=== PATIENT | female | born 1995 | race Caucasian/White ===

== ENCOUNTER 2019-09-19 16:18 | Emergency (ER) | payer OTHER ==
[~2019-09-19] VITALS: Ht 160 cm; Wt 68.0 kg
[2019-09-19 16:35] VITALS: BP 123/62
--- NOTE | 2019-09-19 16:37 | NUR ---
urine cup handed to pt for sample
--- NOTE | 2019-09-19 16:52 | NUR ---
Patient ambulated to bed 12. RN evaluating patient at bedside.
--- NOTE | 2019-09-19 17:00 | NUR ---
24 Y/O F C/O LOWER BACK PAIN THAT RADIATES DOWN BOTH LEGS /. PT STATES SHE WAS GETTING HER DAUGHTER OUT OF THE CAR AND FELT HER BACK STRAIN WHEN REACHING/LIFTING FOR HER. PT DID NOT TAKE ANYTHING FOR PAIN AT HOME. PT ABLE TO LIFT BOTH LEGS WITHOUT DIFFICULTY. NO NUMBNESS OR TINGLING IN BOTH LEGS. PAIN IS DESCRIBED A CRAMPING SENSATION IN THE LOWER BACK. PT POSITIONED FOR COMFORT, AT [facility]. VALENTIN
[2019-09-19] MEDS ORDERED: KETOROLAC 30 MG/ML VIAL IM ONE (17:15)
[2019-09-19 17:33] VITALS: BP 123/62
--- NOTE | 2019-09-19 17:33 | NUR ---
Patient discharged with v/s stable. Written and verbal after care instructions given and explained. Patient alert, oriented and verbalized understanding of instructions. Ambulatory with steady gait. All questions addressed prior to discharge. ID band removed. Patient advised to follow up with PMD. Rx of ACTAMINOPHEN given. Patient educated on indication of medication including possible reaction and side effects. Opportunity to ask questions provided and answered.
== END 2019-09-19 17:33 | disposition home or self-care (01) ==
LOC: MED 16:18
DX: S39.012A Strain of muscle, fascia and tendon of lower back, initial encounter (principal); X50.0XXA Overexertion from strenuous movement or load, initial encounter; Y93.89 Activity, other specified; Y92.89 Other specified places as the place of occurrence of the external cause; Y99.8 Other external cause status
CPT/HCPCS: 81025; 96372; 99283; J1885

== ENCOUNTER 2022-08-02 13:57 | Emergency (ER) | payer OTHER ==
[~2022-08-02] VITALS: Ht 157.5 cm; Wt 68.5 kg
[2022-08-02 14:02] VITALS: BP 132/84
[2022-08-02] MEDS ORDERED: ALBUTEROL SULFATE/IPRATROPIU 3 ML SOL IH ONE (14:40)
[2022-08-02] MEDS ORDERED: DEXAMETHASONE 4 MG TAB PO ONE (14:40)
--- NOTE | 2022-08-02 15:15 | NUR ---
27/F WALKED IN C/O COUGH ONSET 2 DAYS AGO. PT REPORTS TESTING NEGATIVE FOR COVID AT HOME. AFEBRILE AT TRIAGE. DENIES SOB OR CHEST PAIN. AAO4, AMBULATORY. NKA PMH: DENIES
[2022-08-02] MEDS ORDERED: ALBU0.0912 IH (16:30)
[2022-08-02] MEDS ORDERED: DOXY-690 PO (16:30)
[2022-08-02 16:38] VITALS: BP 127/78
--- NOTE | 2022-08-02 16:38 | NUR ---
Patient discharged with v/s stable. Written and verbal after care instructions given. Patient alert, oriented and verbalized understanding of instructions. Ambulatory with steady gait. All questions addressed prior to discharge. ID band removed. Patient advised to follow up with PMD. Rx of PROVENTIL AND VIBRAMYCIN given. Opportunity to ask questions provided and answered.
== END 2022-08-02 16:38 | disposition home or self-care (01) ==
LOC: MED 13:57
DX: J98.01 Acute bronchospasm (principal); Z20.822 Contact with and (suspected) exposure to COVID-19; J18.9 Pneumonia, unspecified organism; F17.200 Nicotine dependence, unspecified, uncomplicated; F12.90 Cannabis use, unspecified, uncomplicated; F41.9 Anxiety disorder, unspecified; Z79.899 Other long term (current) drug therapy
CPT/HCPCS: 71045; 81002; 81025; 94640; 99284

== ENCOUNTER 2022-10-24 08:24 | Emergency (ER) | payer OTHER ==
[~2022-10-24] VITALS: Ht 157.5 cm; Wt 70.8 kg
[~2022-10-24 08:24] MED LIST: ALBU0.0912 IH; DOXY-690 PO
[2022-10-24 08:36] VITALS: BP 130/74
[2022-10-24] MEDS ORDERED: ACETAMINOPHEN 325 MG TAB PO ONE (09:00)
--- NOTE | 2022-10-24 09:20 | NUR ---
Pt tranferred to bed 09
--- NOTE | 2022-10-24 09:24 | NUR ---
Radiology at bedside to complete xray
[2022-10-24] MEDS ORDERED: ACET-8905 PO (10:09)
--- NOTE | 2022-10-24 10:19 | NUR ---
Patient discharged with v/s stable. Written and verbal after care instructions given and explained. Patient alert, oriented and verbalized understanding of instructions. Ambulatory with steady gait. All questions addressed prior to discharge. ID band removed. Patient advised to follow up with PMD. Rx of Hydrocodone/acetaminophen given. Patient educated on indication of medication including possible reaction and side effects. Opportunity to ask questions provided and answered.
[2022-10-24 10:23] VITALS: BP 125/70
== END 2022-10-24 10:19 | disposition home or self-care (01) ==
LOC: MED 08:24
DX: R07.89 Other chest pain (principal)
CPT/HCPCS: 71045; 99283